=== PATIENT | male | born 1975 | race Caucasian/White ===

== ENCOUNTER 2023-12-02 09:43 | Outpatient (CLI) | payer OTHER, SELFPAY ==
--- NOTE | 2023-12-02 10:22 | W.ANESCHARGE ---
Anesthesia Charges Start Date/Time Anesthesia Start Date: 12/02/23 Anesthesia Start Time: 11:21 Stop Date/Time Anesthesia Stop Date: 12/02/23 Anesthesia Stop Time: 11:50
--- NOTE | 2023-12-02 11:52 | W.ANESCHARGE ---
Anesthesia Charges Start Date/Time Anesthesia Start Date: 12/02/23 Anesthesia Start Time: 11:21 Stop Date/Time Anesthesia Stop Date: 12/02/23 Anesthesia Stop Time: 11:50
== END 2023-12-02 09:44 | disposition home or self-care (01) ==
LOC: OP CLINIC 09:45
PROVIDERS: PCP Surgery; Visit Provider Internal Medicine Gastroenterology
DX: Z12.11 Encounter for screening for malignant neoplasm of colon (principal); K63.5 Polyp of colon; K62.1 Rectal polyp
CPT/HCPCS: 45385; 811; 88305; J2704